=== PATIENT | male | born 1960 | race Caucasian/White ===

== ENCOUNTER 2016-09-25 19:39 | Emergency (ER) | payer OTHER ==
--- NOTE | 2016-09-25 22:02 | ED ORDER SUMMARY ---
..... Patient: IVETTE LINDA OrderSheet [facility] VisitID: [id number] [address] [place] [address] 55y, M Registration Date/Time: 09/25/2016 ORDER SHEET Weight: 77.1 kg (stated) Allergies: Cyclobenzaprine GENERAL ORDERS: MEDICATION ORDERS: Percocet PO 5/325 mg (HIGH ALERT MEDICATION, NOW) (21:59 09/25/2016 Tony Umanzor) (k 22:11 [facility]) (22:17 ASchmuck) Motrin PO 600 mg (NOW) (:59 09/25/2016 Tony Umanzor) (Ack 22:11 [facility]) (22:18 ASchmuck) IV FLUIDS: ORDER SHEET NOTES: [Electronically signed by Enma Agee (22:20 09/25/2016)] [Electronically signed by Lowell Mccloud Dr. (05:28 09/26/2016)] [Electronically locked/signed by Enma Agee (22:20 09/25/2016)]
--- NOTE | 2016-09-25 22:02 | ED ORDER SUMMARY ---
..... Patient: IVETTE LINDA OrderSheet [facility] VisitID: [id number] [address] [place] [address] 55y, M Registration Date/Time: 09/25/2016 ORDER SHEET Weight: 77.1 kg (stated) Allergies: Cyclobenzaprine GENERAL ORDERS: MEDICATION ORDERS: Percocet PO 5/325 mg (HIGH ALERT MEDICATION, NOW) (21:59 09/25/2016 Tony Umanzor) (k 22:11 [facility]) (22:17 ASchmuck) Motrin PO 600 mg (NOW) (:59 09/25/2016 Tony Umanzor) (Ack 22:11 [facility]) (22:18 ASchmuck) IV FLUIDS: ORDER SHEET NOTES: [Electronically signed by Enma Agee (22:20 09/25/2016)] [Electronically signed by Lowell Mccloud Dr. (05:28 09/26/2016)] [Electronically locked/signed by Enma Agee (22:20 09/25/2016)]
--- NOTE | 2016-09-25 22:02 | ED NURSING NOTES ---
Clinical Report - Nurses [facility] [address] [place] [address] 09/25/2016 19:43 [id number] TRI[facility] Triage time 21:29. Chief Complaint: RIGHT UPPER EXTREMITY PAIN, SWELLING, NUMBNESS and TINGLING. --21:34 Ameena Merchant R.N. Triage time 21:38 Sep 25 2016. Acuity: LEVEL 5. 21:39 09/25/16. Alert. No acute distress. MONA COMA SCORE: [place] Coma Scale: 15- eyes open spontaneously (4); best verbal response- oriented x 4 (5); best motor response- obeys commands (6). --21:39 Enma Agee 21:35 09/25/16. BP: 139/91. HR: 97. RR: 16. O2 saturation: 97% on room air. Temp: 98.2 F. Pain level now: 05/18. --21:39 Enma Agee. Weight: 77.1 kg stated. Height/Length: 65 inches Per Patient. BMI: 28.3. --21:38 Enma Agee. Medications PARoxetine HCl Oral (Tablet 20 mg) 1 tablet, q day. --21:33 Ameena Merchant R.N. Nabumetone Oral (Tablet 500 mg) 1 tablet, bid. --21:34 Ameena Merchant R.N. Allergies Cyclobenzaprine. --21:36 Enma Agee. Medication/allergy information source: the patient. --21:39 Enma Agee. History Arrived by private vehicle. Historian: patient. Accompanied by daughter. ( When to physical therapist yesterday where gave hat rags on bilat hand. left it on the left for 20 min and on the rt for 40 min. Now has burning itching sensation.). This occurred (1 days ago). --21:34 Ameena Merchant R.N. Arrived by private vehicle, and accompanied by daughter. Primary physician ([facility] in [place]). Injury occurred. Occurred (physical therapy). He has had a skin rash and pre-existing numbness. Treatment MANAGER COMBINATION: Ice. PAST MEDICAL HX: Immunizations: up-to-date. SOCIAL HX: Never smoker. No alcohol use or drug use. FALL RISK ASSESSMENT: Fall risk assessment completed. No fall risk identified. NUTRITIONAL RISK ASSESSMENT: The nutritional risk assessment revealed no deficiencies. FUNCTIONAL ASSESSMENT: Functional assessment: no impairments noted. LEARNING NEEDS ASSESSMENT: The learning needs assessment revealed no barriers. SKIN INTEGRITY ASSESSMENT: Skin integrity risk assessment completed. No skin integrity risk identified. --21:39 Enma Agee. PROBLEMS: Neuropathy. --21:37 Enma Agee. ADDITIONAL SURGERIES: Hands. Left shoulder. Pelvic. Wrists. --21:37 Enma Agee Inguinal Hernia Repair. --21:37 Enma Agee. Interventions ID band on patient. --21:39 Enma Agee. PHYSICAL ASSESSMENT 21:40 09/25/16. Ambulatory to room. GENERAL / NEURO / PSYCH: Oriented X 4. Alert. Appears in no acute distress. He has had pre-existing numbness. EXTREMITIES: Extremities exhibit normal ROM. No upper extremity edema. Right hand: erythema localized to the dorsal and palmar aspect of the hand. SKIN: Skin intact. Skin is warm and dry. --21:40 Enma Agee. NURSING PROGRESS NOTES 21:40 09/25/16. The plan of care for this patient has been created. Extremity elevated. Neuro-vascular extremity check. Reassurance given. Two patient identifiers checked. Call light placed in reach. Side rails up x 1. Bed placed in lowest position. Brakes of bed on. Patient ready for evaluation- chart flagged and ED physician and PA notified. --21:40 Enma Agee 21:43 09/25/16. Cold pack applied. ( Warm blanket provided per request.). --21:43 Enma Agee 22:12 09/25/2016 Percocet (Oxycodone-Acetaminophen) PO 5/325 mg Tablets 1 tab given. Allergies verified, confirmed 5 rights and sedative warning given to the patient and patient's family. --22:17 Enma Agee 22:13 09/25/2016 Motrin PO Tablets 600 mg given. Allergies verified and confirmed 5 rights. --22:18 Enma Agee. DISPOSITION / DISCHARGE 22:19 09/25/16. Departure time: :Sep 25 2016. Condition at departure: unchanged. The goals identified in the patient's plan of care were met. No learning barriers present. Discharge instructions provided and reviewed with the patient and family. Reviewed warnings (Patient verbalized understanding of sedation warning. Patient verbalized awareness of warning s/sx listed in dc paperwork.). Reviewed medication(s) side effects, precautions, dosing and course information. Prescription(s) given to the patient (ibuprofen, percocet.). Treatments reviewed. Reviewed referral to a primary care physician for followup. Patient and family verbalized understanding. Written instructions provided in Danish. The patient was discharged by the physician. He was discharged home and accompanied by family. He left the Emergency Department ambulatory and via private vehicle. Family member driving. FALL RISK ASSESSMENT: Fall risk assessment completed. No fall risk identified. --22:19 Enma Agee 22:18 09/25/16. BP: deferred. HR: deferred. RR: deferred. O2 saturation: deferred. Temp: deferred. Pain level now deferred. --:19 Enma Agee. Locked/Released at 09/25/2016 22:20 by Enma Agee,
--- NOTE | 2016-09-25 22:02 | ED CLINICAL REPORT ---
Clinical Report - Physicians/Mid Levels [facility] [address] [place] [address] 09/25/2016 19:43 Patient: IVETTE LINDA Arrived- By private vehicle. Historian- patient. HISTORY OF PRESENT ILLNESS Chief Complaint: Injury to the right hand. The injury happened yesterday. (at physical therapy). ( states he had both of his hand dipped in wax and covered with a hot towel. Reports decreased sensation to hand and could not feel that it was too hot). The patient sustained a burn. Patient is experiencing moderate pain. Patient denies injury to the head or neck. No other injury. ( states the redness happened shortly after. reports that it is staying the same. no injury/irritation to the left hand. no reaction to the wax.). REVIEW OF SYSTEMS No tingling, numbness, weakness or foreign body. All systems otherwise negative, except as recorded above. PAST HISTORY See nurses notes. Tetanus immunization status is up-to-date. SOCIAL HISTORY Never smoker. No alcohol use or drug use. Is a local resident. ADDITIONAL NOTES The nursing notes have been reviewed. PHYSICAL EXAM Vital Signs: 09/25/2016 21:35 BP: 139/91. HR: 97. RR: 16. O2 saturation: 97%. Temp: 98.2 F. Pain level now: 10/10. Blood pressure normal. Oxygen saturation normal. Appearance: Alert. Oriented X3. No acute distress. Head: Head atraumatic. CVS: Normal heart rate and rhythm. Heart sounds normal. Pulses normal. Respiratory: No respiratory distress. Breath sounds normal. Abdomen: No visible injury. Soft and nontender. Bowel sounds normal. No mass. Skin: Skin warm and dry. Skin intact. Extremities: (mild hyperemia to the right hand from the wrist down. appears to be 1st degree burn. no blisters. compartments soft. neurovasc intact. skin intact.). Extremities otherwise negative. Neuro, Vascular and Tendons: Vascular status intact. Sensation intact. Motor intact. Tendon function intact. PROGRESS AND PROCEDURES Course of Care: the patient is a pleasant and cooperative 55-year-old male with past medical history significant for hand injuries presenting for evaluation ofburn to the right hand. Based on patient's examination, feel that the patient had a thermal burn to the right hand. Patient reports associated been dipping the hand in warm wax and had a hot towel placed over the hand. Patient reports a baseline neuropathy of the hand in which he has decreased sensation. Patient reports that he did not sense that it was too hot during this therapy session. Patient reports no other injury orconcerns at this time. Theunaffected other hand on the left does not have any other symptoms and was exposed to the same wax. Do not feel that this was a contact dermatitis secondary to the wax as the left hand has been spared. Do believe the patient had a thermal burn. Do not feel patient needs to be admitted for hospital require further emergency department intervention. The lake are first-degree in nature and have been about a day old. Would have expected thewounds to have progressed to a second degree burn if they were second degree lake by this time. Do not feel the patient has circumferential second-degree lake or third-degree lake of the digits. I discussed the patient workup, diagnosis, home care, follow-up, and return precautions. All questions answered. The patient expressed understanding of these instructions and was agreeable to them. Total body surface area of second degree lake is 0%. Area of first-degree lake is approximately 2%. Disposition: Discharged. Condition: good. CLINICAL IMPRESSION 09/25/2016 21:35 BP: 139/91. HR: 97. RR: 16. O2 saturation: 97%. Temp: 98.2 F. Pain level now: 10/10. Hypertensive. Oxygen saturation normal. Single thermal burn to the palm and dorsum of the right hand, to the right thumb, to the right index finger, to the right middle finger, to the right ring finger and to the right little finger (acute). Essential hypertension. INSTRUCTIONS Warnings: GENERAL WARNINGS: Return or contact your physician immediately if your condition worsens or changes unexpectedly, if not improving as expected, or if other problems arise. Specifically return if pain, vomiting, bleeding, breathing difficulty or fever. redness, fever, or other concerns. Your Current Medications: CONTINUE TAKING THE FOLLOWING MEDICATIONS: Nabumetone Oral : Tablet 500 mg, 1 tablet bid. PARoxetine HCl Oral : Tablet 20 mg, 1 tablet q day. Prescription Medications: Percocet 5 mg/325 mg: take 1 tablet orally every 6 hours as needed for pain. Dispense twenty (20). No refill. Substitution is permissible. OTC Medications: Motrin (available over the counter): take according to label instructions. Follow-up: Return to the emergency department as needed. Follow up with your doctor in three days. Reason for referral: recheck today's concerns. Summary of care provided to patient via paper. Screening today revealed the patient's blood pressure to be in the hypertensive range. The patient should follow up with a primary care provider for blood pressure management. Understanding of the discharge instructions verbalized by patient. (Electronically signed by Lowell Mccloud Dr. 09/26/2016 5:28)
--- NOTE | 2016-09-25 22:02 | ED NURSING NOTES ---
Clinical Report - Nurses [facility] [address] [place] [address] 09/25/2016 19:43 [id number] Triage time 21:29. Chief Complaint: RIGHT UPPER EXTREMITY PAIN, SWELLING, NUMBNESS and TINGLING. --21:34 Ameena Merchant R.N. Triage time 21:38 Sep 25 2016. Acuity: LEVEL 5. 21:39 09/25/16. Alert. No acute distress. MONA COMA SCORE: [place] Coma Scale: 15- eyes open spontaneously (4); best verbal response- oriented x 4 (5); best motor response- obeys commands (6). --21:39 Enma Agee 21:35 09/25/16. BP: 139/91. HR: 97. RR: 16. O2 saturation: 97% on room air. Temp: 98.2 F. Pain level now: 05/18. --21:39 Enma Agee. Weight: 77.1 kg stated. Height/Length: 65 inches Per Patient. BMI: 28.3. --21:38 Enma Agee. Medications PARoxetine HCl Oral (Tablet 20 mg) 1 tablet, q day. --21:33 Ameena Merchant R.N. Nabumetone Oral (Tablet 500 mg) 1 tablet, bid. --21:34 Ameena Merchant R.N. Allergies Cyclobenzaprine. --21:36 Enma Agee. Medication/allergy information source: the patient. --21:39 Enma Agee. History Arrived by private vehicle. Historian: patient. Accompanied by daughter. ( When to physical therapist yesterday where gave hat rags on bilat hand. left it on the left for 20 min and on the rt for 40 min. Now has burning itching sensation.). This occurred (1 days ago). --21:34 Ameena Merchant R.N. Arrived by private vehicle, and accompanied by daughter. Primary physician ([facility] in [place]). Injury occurred. Occurred (physical therapy). He has had a skin rash and pre-existing numbness. Treatment BUSHWALKING GUIDE: Ice. PAST MEDICAL HX: Immunizations: up-to-date. SOCIAL HX: Never smoker. No alcohol use or drug use. FALL RISK ASSESSMENT: Fall risk assessment completed. No fall risk identified. NUTRITIONAL RISK ASSESSMENT: The nutritional risk assessment revealed no deficiencies. FUNCTIONAL ASSESSMENT: Functional assessment: no impairments noted. LEARNING NEEDS ASSESSMENT: The learning needs assessment revealed no barriers. SKIN INTEGRITY ASSESSMENT: Skin integrity risk assessment completed. No skin integrity risk identified. --21:39 Enma Agee. PROBLEMS: Neuropathy. --21:37 Enma Agee. ADDITIONAL SURGERIES: Hands. Left shoulder. Pelvic. Wrists. --21:37 Enma Agee Inguinal Hernia Repair. --21:37 Enma Agee. Interventions ID band on patient. --21:39 Enma Agee. PHYSICAL ASSESSMENT 21:40 09/25/16. Ambulatory to room. GENERAL / NEURO / PSYCH: Oriented X 4. Alert. Appears in no acute distress. He has had pre-existing numbness. EXTREMITIES: Extremities exhibit normal ROM. No upper extremity edema. Right hand: erythema localized to the dorsal and palmar aspect of the hand. SKIN: Skin intact. Skin is warm and dry. --21:40 Enma Agee. NURSING PROGRESS NOTES 21:40 09/25/16. The plan of care for this patient has been created. Extremity elevated. Neuro-vascular extremity check. Reassurance given. Two patient identifiers checked. Call light placed in reach. Side rails up x 1. Bed placed in lowest position. Brakes of bed on. Patient ready for evaluation- chart flagged and ED physician and PA notified. --21:40 Enma Agee 21:43 09/25/16. Cold pack applied. ( Warm blanket provided per request.). --21:43 Enma Agee 22:12 09/25/2016 Percocet (Oxycodone-Acetaminophen) PO 5/325 mg Tablets 1 tab given. Allergies verified, confirmed 5 rights and sedative warning given to the patient and patient's family. --22:17 Enma Agee 22:13 09/25/2016 Motrin PO Tablets 600 mg given. Allergies verified and confirmed 5 rights. --22:18 Enma Agee. DISPOSITION / DISCHARGE 22:19 09/25/16. Departure time: :Sep 25 2016. Condition at departure: unchanged. The goals identified in the patient's plan of care were met. No learning barriers present. Discharge instructions provided and reviewed with the patient and family. Reviewed warnings (Patient verbalized understanding of sedation warning. Patient verbalized awareness of warning s/sx listed in dc paperwork.). Reviewed medication(s) side effects, precautions, dosing and course information. Prescription(s) given to the patient (ibuprofen, percocet.). Treatments reviewed. Reviewed referral to a primary care physician for followup. Patient and family verbalized understanding. Written instructions provided in Sami. The patient was discharged by the physician. He was discharged home and accompanied by family. He left the Emergency Department ambulatory and via private vehicle. Family member driving. FALL RISK ASSESSMENT: Fall risk assessment completed. No fall risk identified. --22:19 Enma Agee 22:18 09/25/16. BP: deferred. HR: deferred. RR: deferred. O2 saturation: deferred. Temp: deferred. Pain level now deferred. --:19 Enma Agee. Locked/Released at 09/25/2016 22:20 by Enma Agee,
--- NOTE | 2016-09-26 05:28 | ED MAR SUMMARY ---
..... Medication Administration Record [facility] [address] [place] [address] Patient: IVETTE LINDA Visit ID: [id number] 55y, M Weight: 77.1 kg Height/Length: 65 in BMI: 28.3 ALLERGIES: Cyclobenzaprine Given 22:12 09/25/2016 Enma Agee, Medication Administered: PERCOCET [PO] (OXYCODONE-ACETAMINOPHEN), Dose: 1 tab 5/325 mg Tablets PO. Medication Ordered: Percocet PO 5/325 mg (HIGH ALERT MEDICATION, NOW). Given 22:13 09/25/2016 Enma Agee, Medication Administered: MOTRIN [PO], Dose: 600 mg Tablets PO. Medication Ordered: Motrin PO 600 mg (NOW).
--- NOTE | 2016-09-26 05:28 | ED MAR SUMMARY ---
..... Medication Administration Record [facility] [address] [place] [address] Patient: IVETTE LINDA Visit ID: [id number] 55y, M Weight: 77.1 kg Height/Length: 65 in BMI: 28.3 ALLERGIES: Cyclobenzaprine Given 22:12 09/25/2016 Enma Agee, Medication Administered: PERCOCET [PO] (OXYCODONE-ACETAMINOPHEN), Dose: 1 tab 5/325 mg Tablets PO. Medication Ordered: Percocet PO 5/325 mg (HIGH ALERT MEDICATION, NOW). Given 22:13 09/25/2016 Enma Agee, Medication Administered: MOTRIN [PO], Dose: 600 mg Tablets PO. Medication Ordered: Motrin PO 600 mg (NOW).
--- NOTE | 2016-09-26 05:28 | ED MED RECONCILIATION SUMMARY ---
Patient: IVETTE LINDA Medication Reconciliation Report [facility] VisitID: [id number] [address] [place] [address] 55y, M Registration Date/Time: 09/25/2016 Weight: 77.1 kg Height/Length: 65 in. BMI: 28.3 ALLERGIES: Cyclobenzaprine The patient's Home Medications are listed below: CONTINUE TAKING THE FOLLOWING MEDICATIONS: Nabumetone Oral (500 mg) 1 tablet, bid PARoxetine HCl Oral (20 mg) 1 tablet, q day The source(s) of the original Home Medication information: patient The following Medications were given to the patient in the Emergency Department: Percocet [PO] PO 1 tab, administered: 09/25/2016 10:12:00 PM Motrin [PO] PO 600 mg, administered: 09/25/2016 10:13:00 PM The following Medications were prescribed to the patient: Motrin (available over the counter): take according to label instructions. -- Lowell Mccloud Dr. Percocet 5 mg/325 mg: take 1 tablet orally every 6 hours as needed for pain. Dispense twenty (20). No refill. Substitution is permissible. -- Lowell Mccloud Dr.
--- NOTE | 2016-09-26 05:28 | ED MED RECONCILIATION SUMMARY ---
Patient: IVETTE LINDA Medication Reconciliation Report [facility] VisitID: [id number] [address] [place] [address] 55y, M Registration Date/Time: 09/25/2016 Weight: 77.1 kg Height/Length: 65 in. BMI: 28.3 ALLERGIES: Cyclobenzaprine The patient's Home Medications are listed below: CONTINUE TAKING THE FOLLOWING MEDICATIONS: Nabumetone Oral (500 mg) 1 tablet, bid PARoxetine HCl Oral (20 mg) 1 tablet, q day The source(s) of the original Home Medication information: patient The following Medications were given to the patient in the Emergency Department: Percocet [PO] PO 1 tab, administered: 09/25/2016 10:12:00 PM Motrin [PO] PO 600 mg, administered: 09/25/2016 10:13:00 PM The following Medications were prescribed to the patient: Motrin (available over the counter): take according to label instructions. -- Lowell Mccloud Dr. Percocet 5 mg/325 mg: take 1 tablet orally every 6 hours as needed for pain. Dispense twenty (20). No refill. Substitution is permissible. -- Lowell Mccloud Dr.
--- NOTE | 2016-09-26 05:28 | ED DISCHARGE INSTRUCTIONS ---
Patient: IVETTE LINDA [facility] VisitID: [id number] [place] [address] 55y, M Registration Date/Time: 09/25/2016 09/25/2016 21:35 BP: 139/91. HR: 97. RR: 16. O2 saturation: 97%. Temp: 98.2 F. Pain level now: 05/18. Hypertensive. Oxygen saturation normal. Single thermal burn to the palm and dorsum of the right hand, to the right thumb, to the right index finger, to the right middle finger, to the right ring finger and to the right little finger (acute). Essential hypertension. INSTRUCTIONS Warnings: GENERAL WARNINGS: Return or contact your physician immediately if your condition worsens or changes unexpectedly, if not improving as expected, or if other problems arise. Specifically return if pain, vomiting, bleeding, breathing difficulty or fever. redness, fever, or other concerns. Your Current Medications: CONTINUE TAKING THE FOLLOWING MEDICATIONS: Nabumetone Oral : Tablet 500 mg, 1 tablet bid. PARoxetine HCl Oral : Tablet 20 mg, 1 tablet q day. Prescription Medications: Percocet 5 mg/325 mg: take 1 tablet orally every 6 hours as needed for pain. Dispense twenty (20). No refill. Substitution is permissible. OTC Medications: Motrin (available over the counter): take according to label instructions. Follow-up: Return to the emergency department as needed. Follow up with your doctor in three days. Reason for referral: recheck today's concerns. Summary of care provided to patient via paper. Screening today revealed the patient's blood pressure to be in the hypertensive range. The patient should follow up with a primary care provider for blood pressure management. Understanding of the discharge instructions verbalized by patient. ADDITIONAL INFORMATION Burn, Hot Water A hot water burn to the skin causes a first or second-degree burn. Afirst-degree burn causes redness only and heals in a few days. A second-degree burn is deeper and causes a blister to form. The blister may break and leak clear fluid. Second-degree lkae take one to two weeks to heal. Home care The following guidelines will help you care for your burn at home: On the first day, apply a cool compress (small towel soaked in cool water) to relieve severe pain. If no blister formed you may use creams with benzocaine if painful. If ablister formed and broke and a bandage was applied, change it once a day, or as directed. If the bandage sticks, remove it by soaking it in warm water. Wash the burned area daily with soap and water, and pat dry with a clean towel. For the next 3 to 5 days, apply an antibiotic cream or ointment after washing. This will help to prevent an infection and to keep the bandage from sticking. If ablister formed and broke it will go down by itself or it will break on its own in the next few days. If the blister breaks, a clear fluid will leak from it for a day or two. The loose skin from the broken blister has no feeling. This skin may be carefully trimmed away with a clean, small, sharp scissors (to sterilize: soak in alcohol first or wash with soap and water). Wash the raw surface under the blister daily with soap and water. For the next 3 to 5 days, apply an antibiotic cream or ointment after washing. This will help to prevent an infection and to keep the bandage from sticking. You may use acetaminophen or ibuprofen to control pain, unless another pain medicine was prescribed. If you have chronic liver or kidney disease or ever had a stomach ulcer or GI bleeding, talk with your doctor before using these medicines. Do not give ibuprofen to children under6 months of age. Follow-up care Most hot water [place] heal without infection. Occasionally an infection occurs despite proper treatment. Therefore, watch for the signs of infection listed below. When to seek medical attention Get prompt medical attention if any of the following occur: Increasing pain Increasing redness, swelling Pus coming from the wound Fever of 100.4 F (38 C) or higher, or as directed by your health care provider High Blood Pressure -- To Be Confirmed [No Tx] Your blood pressure was higher today than normal. Sometimes anxiety or pain can cause a temporary rise in blood pressure that later returns to normal. If your blood pressure is high on one measurement, this does not mean that you have hypertension (a chronic illness). However, you must have your blood pressure measured again within the next few days to find out if its still high. A normal blood pressure is 120/80 or less. The first (top) number is the "systolic" pressure. The second (bottom) number is the "diastolic" pressure. Hypertension exists when either the top number is 140 or higher, OR the bottom number is 90 or higher on repeated measurements. Blood pressure in the range of 120-140 (systolic) or 80-89 (diastolic) is considered "pre-hypertension". This means your are at risk for getting hypertension. You should have regular blood pressure checks to be sure your blood pressure is not rising. Home Care: Measure your blood pressure on 3 different days and write down the results. This can be done at your doctor's office or this facility. Some pharmacies and grocery stores offer automated blood pressure machines for your use. Follow Up: If your blood pressure is "high" (over 120/80) on 2 out of 3 days, you will need to follow up with your doctor for further evaluation and treatment. DO NOT PUT THIS OFF! Untreated high blood pressure increases the risk for heart attack, also known as acute myocardial infarction, or AMI, and stroke. It is a treatable condition. Get Prompt Medical Attention if any of the following occur: Chest pain or shortness of breath Severe headache Throbbing or rushing sound in the ears Nosebleed Sudden severe abdominal pain Extreme drowsiness, confusion or fainting Dizziness or vertigo (dizziness with spinning sensation) Weakness of an arm or leg or one side of the face Difficulty with speech or vision Oxycodone Hydrochloride, Acetaminophen Oral tablet What is this medicine? ACETAMINOPHEN; OXYCODONE (a set a [place] horace fen; ox i KOE done) is a pain reliever. It is used to treat mild to moderate pain. How should I use this medicine? Take this medicine by mouth with a full glass of water. Follow the directions on the prescription label. Take your medicine at regular intervals. Do not take your medicine more often than directed. Talk to your rubber flap tuber machine operator regarding the use of this medicine in children. Special care may be needed. Patients over 65 years old may have a stronger reaction and need a smaller dose. What side effects may I notice from receiving this medicine? Side effects that you should report to your doctor or health healthcare business analyst as soon as possible: allergic reactions like skin rash, itching or hives, swelling of the face, lips, or tongue breathing difficulties, wheezing confusion light headedness or fainting spells severe stomach pain yellowing of the skin or the whites of the eyes Side effects that usually do not require medical attention (report to your doctor or health healthcare business analyst if they continue or are bothersome): dizziness drowsiness nausea vomiting What may interact with this medicine? alcohol antihistamines barbiturates like amobarbital, butalbital, butabarbital, methohexital, pentobarbital, phenobarbital, thiopental, and secobarbital benztropine drugs for bladder problems like solifenacin, trospium, oxybutynin, tolterodine, hyoscyamine, and methscopolamine drugs for breathing problems like ipratropium and tiotropium drugs for certain stomach or intestine problems like propantheline, homatropine methylbromide, glycopyrrolate, atropine, belladonna, and dicyclomine general anesthetics like etomidate, ketamine, nitrous oxide, propofol, desflurane, enflurane, halothane, isoflurane, and sevoflurane medicines for depression, anxiety, or psychotic disturbances medicines for sleep muscle relaxants naltrexone narcotic medicines (opiates) for pain phenothiazines like perphenazine, thioridazine, chlorpromazine, mesoridazine, fluphenazine, prochlorperazine, promazine, and trifluoperazine scopolamine tramadol trihexyphenidyl What if I miss a dose? If you miss a dose, take it as soon as you can. If it is almost time for your next dose, take only that dose. Do not take double or extra doses. Where should I keep my medicine? Keep out of the reach of children. This medicine can be abused. Keep your medicine in a safe place to protect it from theft. Do not share this medicine with anyone. Selling or giving away this medicine is dangerous and against the law. Store at room temperature between 20 and 25 degrees C (68 and 77 degrees F). Keep container tightly closed. Protect from light. This medicine may cause accidental overdose and if it is taken by other adults, children, or pets. Flush any unused medicine down the toilet to reduce the chance of harm. Do not use the medicine after the expiration date. What should I tell my health care provider before I take this medicine? They need to know if you have any of these conditions: brain tumor Crohn's disease, inflammatory bowel disease, or ulcerative colitis drink more than 3 alcohol containing drinks per day drug abuse or addiction head injury heart or circulation problems kidney disease or problems going to the bathroom liver disease lung disease, asthma, or breathing problems an unusual or allergic reaction to acetaminophen, oxycodone, other opioid analgesics, other medicines, foods, dyes, or preservatives or trying to get breast-feeding What should I watch for while using this medicine? Tell your doctor or health healthcare business analyst if your pain does not go away, if it gets worse, or if you have new or a different type of pain. You may develop tolerance to the medicine. Tolerance means that you will need a higher dose of the medication for pain relief. Tolerance is normal and is expected if you take this medicine for a long time. Do not suddenly stop taking your medicine because you may develop a severe reaction. Your body becomes used to the medicine. This does NOT mean you are addicted. Addiction is a behavior related to getting and using a drug for a non-medical reason. If you have pain, you have a medical reason to take pain medicine. Your doctor will tell you how much medicine to take. If your doctor wants you to stop the medicine, the dose will be slowly lowered over time to avoid any side effects. You may get drowsy or dizzy. Do not drive, use machinery, or do anything that needs mental alertness until you know how this medicine affects you. Do not stand or sit up quickly, especially if you are an older patient. This reduces the risk of dizzy or fainting spells. Alcohol may interfere with the effect of this medicine. Avoid alcoholic drinks. There are different types of narcotic medicines (opiates) for pain. If you take more than one type at the same time, you may have more side effects. Give your health care provider a list of all medicines you use. Your doctor will tell you how much medicine to take. Do not take more medicine than directed. Call emergency for help if you have problems breathing. The medicine will cause constipation. Try to have a bowel movement at least every 2 to 3 days. If you do not have a bowel movement for 3 days, call your doctor or health healthcare business analyst. Do not take Tylenol (acetaminophen) or medicines that have acetaminophen with this medicine. Too much acetaminophen can be very dangerous. Many nonprescription medicines contain acetaminophen. Always read the labels carefully to avoid taking more acetaminophen. You have been given the following additional information: Burn, Hot Water Hypertension, To Be Confirmed Oxycodone Hydrochloride, Acetaminophen Oral tablet (Electronically signed by Lowell Mccloud Dr. 09/26/2016 5:28)
== END 2016-09-25 22:19 | disposition home or self-care (01) ==
LOC: ED SRH 19:39
DX: T23.161A Burn of first degree of back of right hand, initial encounter (principal); T23.151A Burn of first degree of right palm, initial encounter; T23.141A Burn of first degree of multiple right fingers (nail), including thumb, initial encounter; T31.0 Burns involving less than 10% of body surface; Y65.8 Other specified misadventures during surgical and medical care; Y92.89 Other specified places as the place of occurrence of the external cause; Y99.9 Unspecified external cause status; I10 Essential (primary) hypertension